=== PATIENT | female | born 1975 | race American Indian/Alaskan Native ===

== ENCOUNTER 2017-04-13 08:33 | Emergency (ER) | payer SELFPAY ==
[2017-04-13] MEDS ORDERED: MOTRIN PO ONE (11:59)
--- NOTE | 2017-04-13 11:59 | Emergency Department Report ---
Upper Extremity - HPI Chief Complaint: Shoulder Injury Stated Complaint: SHOULDER PAIN Time Seen by Provider: 04/13/17 11:50 Upper Extremity: Left Shoulder (pain) Occurred When: >5 Days (1 week) Mechanism: Unsure Symptoms: Yes Pain with Movement (left shoulder), No Deformity, No Limited Range of Movement (pain with movement), No Numbness, No Weakness, No Swelling, No Bruising/Ecchymosis, No Laceration or Abrasion Other History: Patient reports that she has left shoulder pain and denies any injury. She does here for N and says that this is been increasingly worse over the last week. She's had similar incident in the past. Denies any numbness or tingling to her extremities. Pain is 7 out of 10 and a can. Pain is worse with movement. No medication taken. Denies a redness to shoulder or fever or chills. ED Review of Systems ROS: Stated complaint: SHOULDER PAIN Other details as noted in HPI Comment: All other systems reviewed and negative Constitutional: no symptoms reported ENT: denies: ear pain, throat pain Respiratory: no symptoms reported Cardiovascular: denies: chest pain, palpitations, edema, syncope Gastrointestinal: denies: abdominal pain, nausea, vomiting Musculoskeletal: denies: back pain, joint swelling, arthralgia Skin: denies: rash Neurological: denies: headache ED Past Medical Hx - Past Medical History Previous Medical History?: No - Surgical History Past Surgical History?: Yes Additional Surgical History: - Family History Family history: no significant - Social History Smoking Status: Never Smoker Substance Use Type: None - Medications Home Medications: Home Medications Medication Instructions Recorded Confirmed Last Taken Type Acyclovir [Zovirax Cap] 200 mg PO Q4H #50 capsule 03/27/13 Unknown Rx Ibuprofen [Motrin] 800 mg PO TID PRN #20 tablet 03/27/13 Unknown Rx traMADol [Ultram] 50 mg PO Q8H PRN #12 tablet 04/13/17 Unknown Rx Upper Extremity Exam - Exam General: Vital signs noted. No distress. Alert and acting appropriately. This is a 41-year-old female well-nourished well-developed in no acute distress. Head and Torso: No HEENT Abnormality, No Neck Tenderness, No Chest/Lungs Abnormality, No Abdominal Tenderness, No Back Tenderness Shoulder Exam: Yes Shoulder Tenderness (nontender to palpate to shoulders), Yes Normal Range of Motion in Shoulder (patient with full range of motion but reports pain with movement), No Clavicle Tenderness, No Shoulder Deformity, No AC Joint Tenderness Arm Exam: No Arm/Humerus Tenderness, No Arm Deformity Forearm: No Forearm Tenderness, No Forearm Deformity, No Pain with Pronation, No Pain with Supination Wrist: Yes Normal ROM in Wrist, No Wrist Tenderness, No Wrist Deformity, No Snuffbox Tenderness, No Pain with Axial Thumb Compression Hand: Yes Normal ROM in Digit(s), No Hand Tenderness, No Hand Deformity, No Digit Tenderness, No Digit(s) Deformity, No Tendon Dysfunction CMS Exam: Yes Normal Distal Pulses, Yes Normal Capillary Refill, Yes Normal Distal Sensation, No Broken Skin ED Course Vital Signs 04/13/17 08:40 Temperature 98.6 F Pulse Rate 82 Respiratory 16 Rate Blood Pressure 184/104 O2 Sat by Pulse 98 Oximetry Vital Signs 04/13/17 04/13/17 08:40 11:59 Temperature 98.6 F Pulse Rate 82 Respiratory 16 Rate Blood Pressure 184/104 Blood Pressure 160/88 [Left] O2 Sat by Pulse 98 Oximetry - Reevaluation(s) Reevaluation #1: 04/13/17 11:58 Patient stable throughout ED course she was given Motrin 800 mg for left shoulder pain ED Medical Decision Making - Medical Decision Making ED course: She would undergo a left shoulder pain without any injury. Physical findings for nausea or joint deformity, No AC joint or glenohumeral joint tenderness. Patient able to move her shoulders but reports pain to left shoulder with movement. There are no swelling, redness or effusion. I discussed the patient's chest x-ray only shows bone injuries or soft tissue swelling but she'll probably need a MRI since she did not have any injury to check for rotator cuff injury. She was given Motrin 800 mg by mouth and emergency room for pain. Blood pressure stabilized and I discussed with her she needs to check her blood pressure follow up with her primary care physician which she does have one to monitor blood pressure. Patient discharged home with prescription for Ultram and referred to orthopedic doctor. Critical care attestation.: If time is entered above; I have spent that time in minutes in the direct care of this critically ill patient, excluding procedure time. ED Disposition Clinical Impression: Arthralgia of left shoulder region Disposition: DC-01 TO HOME OR SELFCARE Is pt being admited?: No Does the pt Need Aspirin: No Condition: Serious Instructions: Arthralgia (ED), RICE Therapy (ED) Additional Instructions: Please follow up with orthopedic doctor regarding left shoulder pain You may need to have your primary care physician refer you to orthopedic doctor so please call to request referral Take Ultram as needed for pain but please do not drive or operate heavy machinery while taking this medication. See discharge instruction on rice protocol Prescriptions: traMADol [Ultram] 50 mg PO Q8H PRN #12 tablet PRN Reason: Pain Referrals: KAYLEE COLE MD [Staff Physician] - 2-3 Days PRIMARY CARE, [Primary Care Provider] - 2-3 Days [facility] [Outside] - 2-3 Days Forms: Work/School Release Form(ED)
[2017-04-13 12:00] VITALS: BP 160/88
== END 2017-04-13 12:15 | disposition home or self-care (01) ==
LOC: ED 08:33
DX: M25.512 Pain in left shoulder (principal)
CPT/HCPCS: 99283

== ENCOUNTER 2018-10-19 20:35 | Emergency (ER) | payer MEDICAID ==
--- NOTE | 2018-10-19 21:32 | Event Note ---
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 Further treatment and workup at subsequent clinical providers discretion. Patient/guardian urged not to elope from the ED as their condition may be serious if not clinically assessed and managed. Initial orders include: labs, EKG, UA
[2018-10-19 22:02] LABS: Basophils % (Auto) 0.4 % (0.0-1.8); Eosinophils # (Auto) 0.2 K/mm3 (0.0-0.4); Eosinophils % (Auto) 1.5 % (0.0-4.3); Hematocrit 36.8 % (30.3-42.9); Hemoglobin 12.2 gm/dl (10.1-14.3); Lymphocytes # (Auto) 2.9 K/mm3 (1.2-5.4); Lymphocytes % (Auto) 25.8 % (13.4-35.0); Mean Corpuscular HGB Conc 33 % (30-34); Mean Corpuscular Volume 86 fl (79-97); Monocytes # (Auto) 0.9 K/mm3 (0.0-0.8); Monocytes % (Auto) 7.6 % (0.0-7.3); Platelet Count 331 K/mm3 (140-440); Red Blood Count 4.29 M/mm3 (3.65-5.03); Red Cell Distribution Width 14.1 % (13.2-15.2)
[2018-10-19 22:29] LABS: Alanine Aminotransferase 19 units/L (7-56); Albumin 4.2 g/dL (3.9-5); BUN/Creatinine Ratio 22; Blood Urea Nitrogen 11 mg/dL (7-17); Calcium 11.2 mg/dL (8.4-10.2); Hemolysis Index 0
[2018-10-19] MEDS ORDERED: NACL 0.9% 1000 ML 1,000 ML IV ONE (23:25)
--- NOTE | 2018-10-19 23:26 | Emergency Department Report ---
ED Palpitations HPI - General Chief Complaint: Chest Pain Stated Complaint: CHEST PAIN, HIGH HEARTRATE, HBP, 12 WEEKS Time Seen by Provider: 10/19/18 21:31 Source: patient Mode of arrival: Ambulatory Limitations: No Limitations - History of Present Illness Initial Comments: Patient is a 43-year-old female who presents emergency room with complaints of palpitations and fast heart rate. Patient states her watch showing her at heart rate of 105. Patient states her symptoms of been intermittent over the last 4 days. Patient states that it is becoming more frequent. Patient states she is 12 weeks . Patient states she has already seen a [facility] ADMINISTRATOR and has an ultrasound scheduled tomorrow. Patient denies abdominal pain. Patient denies loss of fluid per vagina. Patient denies vaginal bleeding. Patient denies chest pain and shortness of breath. Patient states she's not had any chest pressure or chest pain at all with the symptoms. Patient denies cough. Patient denies fever and chills. Patient denies diaphoresis. Patient states her symptoms are better with rest and intake of water and food. Patient states her palpitations are worse with exertion MD Complaint: rapid heart beat, "heart racing", palpitations -: Sudden Context: occured during rest, occured during exertion Associated Symptoms: denies: chest pain, shortness of breath, syncope, near- syncope, nausea/vomiting, anxiety, diaphoresis, cough, parasthesias, feeling of impending doom, muscle cramps - Related Data Previous Rx's Medication Instructions Recorded Last Taken Type Acyclovir [Zovirax Cap] 200 mg PO Q4H #50 capsule 03/27/13 Unknown Rx Ibuprofen [Motrin] 800 mg PO TID PRN #20 tablet 03/27/13 Unknown Rx traMADol [Ultram] 50 mg PO Q8H PRN #12 tablet 04/13/17 Unknown Rx Allergies Allergy/AdvReac Type Severity Reaction Status Date / Time No Known Allergies Allergy Verified 10/19/18 20:41 ED Review of Systems ROS: Stated complaint: CHEST PAIN, HIGH HEARTRATE, HBP, 12 WEEKS Other details as noted in HPI Constitutional: denies: chills, fever Eyes: denies: eye pain, eye discharge, vision change ENT: denies: ear pain, throat pain Respiratory: denies: cough, shortness of breath, wheezing Cardiovascular: palpitations. denies: chest pain Endocrine: no symptoms reported Gastrointestinal: denies: abdominal pain, nausea, diarrhea Genitourinary: denies: urgency, dysuria, discharge Musculoskeletal: denies: back pain, joint swelling, arthralgia Skin: denies: rash, lesions Neurological: denies: headache, weakness, paresthesias Psychiatric: denies: anxiety, depression Hematological/Lymphatic: denies: easy bleeding, easy bruising ED Past Medical Hx - Past Medical History Previous Medical History?: Yes Hx Hypertension: Yes Hx Diabetes: Yes (Gestational) Additional medical history: High Cholesterol - Surgical History Past Surgical History?: Yes Additional Surgical History: - Family History Family history: no significant - Social History Smoking Status: Never Smoker Substance Use Type: None - Medications Home Medications: Home Medications Medication Instructions Recorded Confirmed Last Taken Type Acyclovir [Zovirax Cap] 200 mg PO Q4H #50 capsule 03/27/13 Unknown Rx Ibuprofen [Motrin] 800 mg PO TID PRN #20 tablet 03/27/13 Unknown Rx traMADol [Ultram] 50 mg PO Q8H PRN #12 tablet 04/13/17 Unknown Rx ED Physical Exam - General Limitations: No Limitations General appearance: alert, in no apparent distress - Head Head exam: Present: atraumatic, normocephalic - Eye Eye exam: Present: normal appearance, PERRL Pupils: Present: normal accommodation - ENT ENT exam: Present: mucous membranes dry - Neck Neck exam: Present: normal inspection - Respiratory Respiratory exam: Present: normal lung sounds bilaterally. Absent: respiratory distress, wheezes, rales, chest wall tenderness - Cardiovascular Cardiovascular Exam: Present: regular rate, normal rhythm. Absent: systolic murmur, diastolic murmur, rubs, gallop - GI/Abdominal GI/Abdominal exam: Present: soft, normal bowel sounds. Absent: distended, tend erness, guarding - Rectal Rectal exam: Present: deferred - Extremities Exam Extremities exam: Present: normal inspection - Back Exam Back exam: Present: normal inspection - Neurological Exam Neurological exam: Present: alert, oriented X3 - Psychiatric Psychiatric exam: Present: normal affect, normal mood - Skin Skin exam: Present: warm, dry, intact, normal color. Absent: rash ED Course Vital Signs 10/19/18 10/19/18 21:12 21:29 Temperature 98.3 F 98.3 F Pulse Rate 95 H 97 H Respiratory 16 18 Rate Blood Pressure 157/88 157/57 O2 Sat by Pulse 100 100 Oximetry - Reevaluation(s) Reevaluation #1: Patient states she has not had any palpitations the ER. Patient states she is feeling much better. Patient stable for discharge. Patient responded well to t herapy. Patient given discharge instructions. Patient voiced understanding of discharge instructions. 10/20/18 01:27 ED Medical Decision Making - Lab Data Result diagrams: 10/19/18 21:42 10/19/18 21:42 - EKG Data -: EKG Interpreted by Me EKG shows normal: sinus rhythm, axis, intervals, QRS complexes, ST-T waves Rate: normal - Medical Decision Making Patient is a 43-year-old female that is 12 weeks presents to emergency room with palpitations. They subsequently going on for for [address] ates she never had any shortness of breath or chest pain. Patient heart rate stable and vital signs stable in ER. Patient given fluids. Patient's symptoms improved with this. Patient instructed to increase water. Patient given discharge instructions. Patient discharged home. - Differential Diagnosis dehydration. Palpitations. Critical care attestation.: If time is entered above; I have spent that time in minutes in the direct care of this critically ill patient, excluding procedure time. ED Disposition Clinical Impression: Palpitations, Dehydration Disposition: - TO HOME OR SELFCARE Is pt being admited?: No Does the pt Need Aspirin: No Condition: Stable Instructions: Palpitations (ED), Dehydration (ED), DASH Eating Plan (ED), Low Sodium Diet (ED) Additional Instructions: Patient to follow-up with primary care in 2-3 days. Patient to follow-up with [facility] ADMINISTRATOR in 2-3 days. Patient to return to the ER condition worsens. Patient to increase water. Patient to continue taking vitamins. Patient to continue all other medications. Patient to rest. Patient to avoid strenuous exercise until cleared by [facility] ADMINISTRATOR. Patient is a low-salt diet. Referrals: NORA DOBBS MD [Primary Care Provider] - 2-3 Days Time of Disposition: 01:29
[2018-10-19 23:38] LABS: Bacteria,Urine 1+ /HPF (Negative); Bilirubin,Urine NEG (Negative); Blood,Urine NEG (Negative); Calcium Oxalate Crystals,Urine 3+; Color,Urine Yellow (Yellow); Mucus,Urine FEW /HPF; Urobilinogen,Urine < 2.0 mg/dL (<2.0)
[2018-10-20 01:55] VITALS: BP 137/87
== END 2018-10-20 01:53 | disposition home or self-care (01) ==
LOC: ED 20:35
DX: E86.0 Dehydration (principal); R00.2 Palpitations; I10 Essential (primary) hypertension; E78.00 Pure hypercholesterolemia, unspecified
CPT/HCPCS: 36415; 80053; 81001; 82550; 82553; 83735; 83880; 84100; 84443; 84484; 85025; 93005; 93010; 96360; 99284; J7030

== ENCOUNTER 2019-04-04 21:22 | Emergency (ER) | payer MEDICAID ==
[2019-04-04] MEDS ORDERED: ACETAMINOPHEN 500 MG TAB PO ONE (21:51)
--- NOTE | 2019-04-04 21:56 | Event Note ---
ED Screening Note Date of service: 04/04/19 Time: 21:53 ED Screening Note: Patient is 10 days post- through , and has a h/o Pre-Eclampsia with elevated Blood pressure. Patient in the ED for elevated Blood pressure and severe headache. Patient on Labetalol 300mg BID. Patient denies dyspnea, fever, chills, abdominal pain, chest pain, dizziness, and syncope or seizures. This initial assessment/diagnostic orders/clinical plan/treatment(s) is/are subject to change based on patients health status, clinical progression and re- assessment by fellow clinical providers in the ED. Further treatment and workup at subsequent clinical providers discretion. Patient/guardian urged not to elope from the ED as their condition may be serious if not clinically assessed and managed. Initial orders include: CBC, CMP, UA
[2019-04-04 22:38] LABS: Hematocrit 37.8 % (30.3-42.9); Hemoglobin 12.1 gm/dl (10.1-14.3); Mean Corpuscular HGB Conc 32 % (30-34); Mean Corpuscular Volume 89 fl (79-97); Platelet Count 410 K/mm3 (140-440); Red Blood Count 4.24 M/mm3 (3.65-5.03); Red Cell Distribution Width 15.8 % (13.2-15.2)
[2019-04-04 22:58] LABS: Alanine Aminotransferase 26 units/L (7-56); Albumin 3.7 g/dL (3.9-5); BUN/Creatinine Ratio 19; Blood Urea Nitrogen 13 mg/dL (7-17); Calcium 11.1 mg/dL (8.4-10.2); Hemolysis Index 2
[2019-04-04 23:04] LABS: Bilirubin,Urine NEG (Negative); Blood,Urine NEG (Negative); Color,Urine Straw (Yellow); Mucus,Urine FEW /HPF; Protein,Urine <15 mg/dL mg/dL (Negative); Urobilinogen,Urine < 2.0 mg/dL (<2.0)
[2019-04-05] MEDS ORDERED: SODIUM CHLORIDE 0.9% 1000 ML 1,000 ML IV ONE (00:47)
[2019-04-05 01:35] LABS: Band Neutrophils # (Manual) 0.1 K/mm3; Total Cells Counted 100
[2019-04-05 01:36] LABS: Platelet Estimate Consistent w Auto; RBC Morphology Normal
--- NOTE | 2019-04-05 02:41 | Emergency Department Report ---
ED General Adult HPI - General Chief complaint: High BP Stated complaint: 10D POST /HBP Time Seen by Provider: 04/05/19 00:19 Source: patient Mode of arrival: Ambulatory Limitations: No Limitations - History of Present Illness Initial comments: The patient presents to the emergency department with a chief complaint elevated blood pressure. Patient states she is 10 days with emergent delivery of baby secondary to superimposed preeclampsia on pre-existing hypertension. Patient states she saw her furniture stainer yesterday with was Dr. Puentes and her labetalol was increased to 300 mg. Patient states today was checked her blood pressure was 224/118. Patient states this morning she had a headache but denies a headache currently. She denies shortness breath, chest pain, abdominal pain -: Gradual Severity scale (0 -10): 0 Improves with: none Worsens with: none Associated Symptoms: denies other symptoms Treatments Prior to Arrival: none - Related Data Home Medications Medication Instructions Recorded Confirmed Last Taken Aspirin EC [Halfprin EC] 81 mg PO QDAY 03/23/19 03/23/19 03/23/19 Calcium Carbonate [Tums 500MG CHEW] 1,000 mg PO BID PRN 03/23/19 03/23/19 03/22/19 Pnv No.121/Iron/Folic Acid 1 each PO DAILY 03/23/19 03/26/19 03/23/19 [ Multivitamin Tablet] labetaloL [Labetalol 100mg TAB] 100 mg PO BID 03/23/19 03/23/19 03/23/19 metFORMIN ER Gastric 1,500 mg PO DAILY 03/23/19 03/23/19 03/23/19 Previous Rx's Medication Instructions Recorded Last Taken Type Ferrous Sulfate [Feosol 325 MG tab] 325 mg PO BID #60 tablet 03/28/19 Unknown Rx HYDROcodone/APAP 5-325 [Leroy 1 each PO Q6HR PRN #30 tablet 03/28/19 Unknown Rx 5-325 mg TAB] Ibuprofen [Motrin 800 MG tab] 800 mg PO Q6H PRN #30 tablet 03/28/19 Unknown Rx labetaloL [Labetalol 100mg TAB] 100 mg PO BID #60 tablet 03/28/19 Unknown Rx metFORMIN [Glucophage] 1,500 mg PO QHS #30 tablet 03/28/19 Unknown Rx NIFEdipine [Procardia] 10 mg PO QDAY #30 capsule 04/05/19 Unknown Rx Allergies Allergy/AdvReac Type Severity Reaction Status Date / Time No Known Allergies Allergy Verified 03/23/19 22:20 ED Review of Systems ROS: Stated complaint: 10D POST /HBP Other details as noted in HPI Comment: All other systems reviewed and negative Constitutional: denies: chills, fever Eyes: denies: eye pain, eye discharge, vision change ENT: denies: ear pain, throat pain Respiratory: denies: cough, shortness of breath, wheezing Cardiovascular: denies: chest pain, palpitations Endocrine: no symptoms reported Gastrointestinal: denies: abdominal pain, nausea, diarrhea Genitourinary: denies: urgency, dysuria, discharge Musculoskeletal: denies: back pain, joint swelling, arthralgia Skin: denies: rash, lesions Neurological: denies: headache, weakness, paresthesias Psychiatric: denies: anxiety, depression Hematological/Lymphatic: denies: easy bleeding, easy bruising ED Past Medical Hx - Past Medical History Previous Medical History?: Yes Hx Hypertension: Yes (CHTN) Hx Heart Attack/AMI: No Hx Congestive Heart Failure: No Hx Diabetes: Yes (taking Metformin) Hx Deep Vein Thrombosis: No Hx Liver Disease: No Hx Renal Disease: No Hx Sickle Cell Disease: No Hx Seizures: No Hx Asthma: No Hx COPD: No Additional medical history: High Cholesterol - Surgical History Past Surgical History?: Yes Hx Pacemaker: No Hx Internal Defibrillator: No Additional Surgical History: - Social History Smoking Status: Never Smoker Substance Use Type: None - Medications Home Medications: Home Medications Medication Instructions Recorded Confirmed Last Taken Type Aspirin EC [Halfprin EC] 81 mg PO QDAY 03/23/19 03/23/19 03/23/19 History Calcium Carbonate [Tums 500MG CHEW] 1,000 mg PO BID PRN 03/23/19 03/23/19 03/22/19 History Pnv No.121/Iron/Folic Acid 1 each PO DAILY 03/23/19 03/26/19 03/23/19 History [ Multivitamin Tablet] labetaloL [Labetalol 100mg TAB] 100 mg PO BID 03/23/19 03/23/19 03/23/19 History metFORMIN ER Gastric 1,500 mg PO DAILY 03/23/19 03/23/19 03/23/19 History Ferrous Sulfate [Feosol 325 MG tab] 325 mg PO BID #60 tablet 03/28/19 Unknown Rx HYDROcodone/APAP 5-325 [Leroy 1 each PO Q6HR PRN #30 tablet 03/28/19 Unknown Rx 5-325 mg TAB] Ibuprofen [Motrin 800 MG tab] 800 mg PO Q6H PRN #30 tablet 03/28/19 Unknown Rx labetaloL [Labetalol 100mg TAB] 100 mg PO BID #60 tablet 03/28/19 Unknown Rx metFORMIN [Glucophage] 1,500 mg PO QHS #30 tablet 03/28/19 Unknown Rx NIFEdipine [Procardia] 10 mg PO QDAY #30 capsule 04/05/19 Unknown Rx ED Physical Exam - General Limitations: No Limitations General appearance: alert, in no apparent distress - Head Head exam: Present: atraumatic, normocephalic - Eye Eye exam: Present: normal appearance, PERRL, EOMI - ENT ENT exam: Present: mucous membranes moist - Neck Neck exam: Present: normal inspection - Respiratory Respiratory exam: Present: normal lung sounds bilaterally. Absent: respiratory distress - Cardiovascular Cardiovascular Exam: Present: regular rate, normal rhythm. Absent: systolic murmur, diastolic murmur, rubs, gallop - GI/Abdominal GI/Abdominal exam: Present: soft, normal bowel sounds. Absent: distended, tenderness - Extremities Exam Extremities exam: Present: normal inspection - Back Exam Back exam: Present: normal inspection - Neurological Exam Neurological exam: Present: alert, oriented X3, CN II-XII intact. Absent: motor sensory deficit - Psychiatric Psychiatric exam: Present: normal affect, normal mood - Skin Skin exam: Present: warm, dry, intact, normal color. Absent: rash ED Course Vital Signs 04/04/19 04/05/19 04/05/19 21:46 00:39 01:28 Temperature 98.1 F Pulse Rate 76 71 71 Respiratory 18 17 Rate Blood Pressure 200/107 Blood Pressure 175/93 167/86 [Left] O2 Sat by Pulse 96 Oximetry 04/05/19 03:31 Temperature Pulse Rate 77 Respiratory 16 Rate Blood Pressure Blood Pressure 180/102 [Left] O2 Sat by Pulse 97 Oximetry ED Medical Decision Making - Lab Data Result diagrams: 04/04/19 22:05 04/04/19 22:05 Lab Results 04/04/19 04/04/19 04/04/19 Range/Units 22:00 22:05 22:05 WBC 8.9 (4.5-11.0) K/mm3 RBC 4.24 (3.65-5.03) M/mm3 Hgb 12.1 (10.1-14.3) gm/dl Hct 37.8 (30.3-42.9) % MCV 89 (79-97) fl MCH 29 (28-32) pg MCHC 32 (30-34) % RDW 15.8 H (13.2-15.2) % Plt Count 410 (140-440) K/mm3 Add Manual Diff Complete Total Counted 100 Seg Neuts % (Manual) 57.0 (40.0-70.0) % Band Neutrophils % 1.0 % Lymphocytes % (Manual) 32.0 (13.4-35.0) % Reactive Lymphs % (Man) 0 % Monocytes % (Manual) 6.0 (0.0-7.3) % Eosinophils % (Manual) 2.0 (0.0-4.3) % Basophils % (Manual) 2.0 H (0.0-1.8) % Metamyelocytes % 0 % Myelocytes % 0 % Promyelocytes % 0 % Blast Cells % 0 % Nucleated RBC % Not Reportable Seg Neutrophils # Man 5.1 (1.8-7.7) K/mm3 Band Neutrophils # 0.1 K/mm3 Lymphocytes # (Manual) 2.8 (1.2-5.4) K/mm3 Abs React Lymphs (Man) 0.0 K/mm3 Monocytes # (Manual) 0.5 (0.0-0.8) K/mm3 Eosinophils # (Manual) 0.2 (0.0-0.4) K/mm3 Basophils # (Manual) 0.2 H (0.0-0.1) K/mm3 Metamyelocytes # 0.0 K/mm3 Myelocytes # 0.0 K/mm3 Promyelocytes # 0.0 K/mm3 Blast Cells # 0.0 K/mm3 WBC Morphology Not Reportable Hypersegmented Neuts Not Reportable Hyposegmented Neuts Not Reportable Hypogranular Neuts Not Reportable Smudge Cells Not Reportable Toxic Granulation Not Reportable Toxic Vacuolation Not Reportable Dohle Bodies Not Reportable Pelger-Huet Anomaly Not Reportable Ming Rods Not Reportable Platelet Estimate Consistent w auto Clumped Platelets Not Reportable Plt Clumps, EDTA Not Reportable Large Platelets Not Reportable Giant Platelets Not Reportable Platelet Satelliting Not Reportable Plt Morphology Comment Not Reportable RBC Morphology Normal Dimorphic RBCs Not Reportable Polychromasia Not Reportable Hypochromasia Not Reportable Poikilocytosis Not Reportable Anisocytosis Not Reportable Microcytosis Not Reportable Macrocytosis Not Reportable Spherocytes Not Reportable Pappenheimer Bodies Not Reportable Sickle Cells Not Reportable Target Cells Not Reportable Tear Drop Cells Not Reportable Ovalocytes Not Reportable Helmet Cells Not Reportable [place] Bodies Not Reportable [place] Rings Not Reportable [place] Cells Not Reportable Bite Cells Not Reportable Crenated Cell Not Reportable Elliptocytes Not Reportable Acanthocytes (Spur) Not Reportable Rouleaux Not Reportable Hemoglobin C Crystals Not Reportable Schistocytes Not Reportable Malaria parasites Not Reportable Jed Bodies Not Reportable Hem Pathologist Commnt No Sodium 138 (137-145) mmol/L Potassium 4.3 (3.6-5.0) mmol/L Chloride 103.9 (98-107) mmol/L Carbon Dioxide 21 L (22-30) mmol/L Anion Gap 17 mmol/L BUN 13 (7-17) mg/dL Creatinine 0.7 (0.7-1.2) mg/dL Estimated GFR > 60 ml/min BUN/Creatinine Ratio 19 % Glucose 87 (65-100) mg/dL Calcium 11.1 H (8.4-10.2) mg/dL Total Bilirubin 0.30 (0.1-1.2) mg/dL AST 23 (5-40) units/L ALT 26 (7-56) units/L Alkaline Phosphatase 80 (35-129) units/L Total Protein 6.6 (6.3-8.2) g/dL Albumin 3.7 L (3.9-5) g/dL Albumin/Globulin Ratio 1.3 % Urine Color Straw (Yellow) Urine Turbidity Clear (Clear) Urine pH 6.0 (5.0-7.0) Ur Specific [place] 1.006 (1.003-1.030) Urine Protein <15 mg/dl (Negative) mg/dL Urine Glucose (UA) Neg (Negative) mg/dL Urine Ketones Neg (Negative) mg/dL Urine Blood Neg (Negative) Urine Nitrite Neg (Negative) Urine Bilirubin Neg (Negative) Urine Urobilinogen < 2.0 (<2.0) mg/dL Ur Leukocyte Esterase Tr (Negative) Urine WBC (Auto) 3.0 (0.0-6.0) /HPF Urine RBC (Auto) 1.0 (0.0-6.0) /HPF Urine Mucus Few /HPF - Radiology Data Radiology results: report reviewed - Medical Decision Making Spoke with Dr. Puentes and the patient was discussed in detail and it was suggested. It was suggested to start The patient Procardia and to follow-up in his office Critical care attestation.: If time is entered above; I have spent that time in minutes in the direct care of this critically ill patient, excluding procedure time. ED Disposition Clinical Impression: Hypertension Disposition: DC-01 TO HOME OR SELFCARE Is pt being admited?: No Does the pt Need Aspirin: No Condition: Stable Instructions: Hypertension (ED) Additional Instructions: return if worse Please follow with Dr. Puentes today or tomorrow Prescriptions: NIFEdipine [Procardia] 10 mg PO QDAY #30 capsule Referrals: PRIMARY CARE, [Primary Care Provider] - 3-5 Days WILFREDO PUENTES MD [Staff Physician] - 3-5 Days Time of Disposition: 03:42
[2019-04-05] MEDS ORDERED: NIFEdipine XL 30 MG TAB PO ONE (03:55)
[2019-04-05] MEDS ORDERED: NIFEdipine*For Tocolysis only* 10 MG CAPSULE PO ONE (04:10)
[2019-04-05 04:24] VITALS: BP 170/95
== END 2019-04-05 04:35 | disposition home or self-care (01) ==
LOC: ED 21:22
DX: O16.5 Unspecified maternal hypertension, complicating the puerperium (principal); O24.33 Unspecified pre-existing diabetes mellitus in the puerperium; E11.9 Type 2 diabetes mellitus without complications; E78.00 Pure hypercholesterolemia, unspecified; Z98.890 Other specified postprocedural states; Z79.899 Other long term (current) drug therapy
CPT/HCPCS: 36415; 80053; 81001; 85007; 85025; 99283; J7030